=== PATIENT | male | born 1975 | race Caucasian/White ===

== ENCOUNTER 2022-02-09 07:23 | Emergency (ER) | payer BC ==
[2022-02-09] MEDS ORDERED: Acetaminophen 325 MG Tab PO ONE (07:46)
[2022-02-09] MEDS ORDERED: HYDROmorphone 0.5 MG/0.5 ML Syringe IVPUSH ONE (07:50)
[2022-02-09] MEDS ORDERED: Ondansetron 4 MG/2 ML SDV IVPUSH ONE (07:50)
[2022-02-09] MEDS ORDERED: Dextrose 5%-0.9% NaCl 1,000 ML IV SCH (08:00)
[2022-02-09] MEDS ORDERED: Ketorolac 30 MG/ML SDV IVPUSH SCH (08:00)
[2022-02-09 08:09] LABS: CORONAVIRUS COVID-19 NAA NEGATIVE (NEGATIVE)
[2022-02-09 08:47] LABS: ESTIMATED GFR 76 mL/min (>60)
[2022-02-09] MEDS ORDERED: Lactated Ringers 1,000 ML IV SCH (09:15)
[2022-02-09] MEDS ORDERED: Metoclopramide 10 MG/2 ML SDV IVPUSH ONE (09:22)
== END 2022-02-09 11:10 | disposition home or self-care (01) ==
LOC: JD.ED 07:23 → SUPCPDRO 07:23 → JD.ED 11:10
DX: B34.9 Viral infection, unspecified (principal); J45.909 Unspecified asthma, uncomplicated; Z88.2 Allergy status to sulfonamides; Z79.899 Other long term (current) drug therapy; Z20.822 Contact with and (suspected) exposure to COVID-19
CPT/HCPCS: 0240U; 36415; 71045; 80053; 81001; 83605; 83735; 84484; 85025; 85379; 85610; 85730; 86140; 87040; 93005; 96361; 96374; 96375; 99284; A9270; J1170; J1885; J2405; J2765; J7042; J7120; 93010